=== PATIENT | male | born 1980 | race Caucasian/White ===

== ENCOUNTER 2017-01-01 10:04 | Day surgery (SDC) | payer OTHER ==
[2017-01-01] MEDS ORDERED: NS 250 ML ONE (10:39)
[2017-01-01] MEDS ORDERED: BENADRYL ONE (10:39)
[2017-01-01] MEDS ORDERED: TYLENOL ONE (10:39)
[2017-01-01] MEDS ORDERED: REMICADE IV ONE (11:00)
[2017-01-01] MEDS ORDERED: NS IV ONE (11:00)
[2017-01-01] MEDS ORDERED: HEPARIN ONE (11:16)
[2017-01-01 14:59] VITALS: BP 99/58
== END 2017-01-01 14:33 | disposition home or self-care (01) ==
LOC: INF 10:04
PROVIDERS: ATTEND Internal Medicine Gastroenterology
DX: K50.90 Crohn's disease, unspecified, without complications (principal); Z79.899 Other long term (current) drug therapy; Z79.4 Long term (current) use of insulin; Z79.84 Long term (current) use of oral hypoglycemic drugs
CPT/HCPCS: 96365; 96366; J1745; J7050